=== PATIENT | male | born 1975 | race Caucasian/White ===

== ENCOUNTER 2023-11-01 09:11 | Inpatient (IN) | payer MEDICARE, SELFPAY ==
[2023-11-01] VITALS (38 sets, daily range): BP systolic 94–122; BP diastolic 52–77; PULSE 77–103; RESP 16–18; TEMP 36.7–37.3; O2SAT 79–99; BMI 26.6; BMI 27.4
--- NOTE | 2023-11-01 10:20 | ED.ABDPAIN ---
HPI - Abdominal Pain General Time Seen by Provider: 10:21 Date Seen: 11/01/23 Chief Complaint: Abdominal Pain Stated Complaint: cancer pt- extreme pain Time Seen by Provider: 11/01/23 10:19 Source: patient, family, RN notes reviewed and old records reviewed Mode of arrival: ambulatory Limitations: no limitations History of Present Illness HPI narrative: Demarcus is a very pleasant 48-year-old male 1st visit to [facility] ED for evaluation regarding abdominal pain that started yesterday. Patient notes that he is currently experiencing stage IV esophageal cancer. He has a G-tube placed. He states he is trying to find a primary and from what I can gather most of his care has been done with the [facility] system. He does have oxycodone for pain and received that from [facility]. States he did not want to deal with the waiting at [facility]. Notes the pain is in the epigastrium. He has been passing gas and does not feel like he is bloated. He states that in the past he has had multiple ulcerations and has had a stent placed. Rather challenging history with patient and thus I spoke to his . She is almost in tears stating that she wants her to go on hospice. She notes that Demarcus thinks that his tumor is dying and shrinking and that is why he is seeing blood in the G-tube. She notes that he is very crabby and has been very hard on her and she wants him on hospice. She notes that he was offered chemotherapy as palliative care but declined is trying to do more healthy foods. He wanted a CT today to prove that the tumor is shrinking. She knows that it is not shrinking and he will not accept this. He has been feeling incredibly weak and they are unsure if it is the oxycodone or if it is low hemoglobin. Previous hemoglobin on 10/17 at [facility] was 8.5. He denies shortness of breath or a cough. When asked about bleeding he states he feels like he is bleeding in his abdomen. I do ask if it he has seen it is G2 and he insists on getting up out of the bed and draining a serous fluid from his G-tube into a cup with no flex in it to prove to me that there is evidence of blood. I told him he did not have to do this and that I would believe him but he insisted on getting up. Related Data Home Medications Medication Instructions Recorded Confirmed fentanyl 50 mcg/hr transdermal 1 patch transdermal Q72H 11/01/23 11/01/23 patch oxycodone 10 mg tablet 10 mg PO Q4H 11/01/23 11/01/23 Allergies Allergy/AdvReac Type Severity Reaction Status Date / Time No Known Drug Allergies Allergy Verified 11/01/23 15:25 Review of Systems Status of ROS Reports: 10 or more systems reviewed and unremarkable except as noted in History and below Const Reports: fatigue; Denies: fever or chills Eyes Denies: change in vision ENMT Reports: difficulty swallowing; Denies: throat pain Cardio Denies: chest pain or shortness of breath with exertion Resp Denies: shortness of breath or cough GI Reports: abdominal pain, nausea and difficulty swallowing; Denies: vomiting or diarrhea Denies: painful urination Musculo Denies: back pain Endo Reports: fatigue PFSH PFSH Social History Smoking Status: Former smoker How often do you have a drink containing alcohol: never AUDIT-C Alcohol total score: 0 Non-prescribed substance use: denies use Exam Narrative: Exam Narrative: Patient is a awake and oriented. Somewhat of a challenging historian. Mildly confused. External ears eyes nose clear. Lips are dry. Heart with a regular rate and rhythm. Lungs are clear bilaterally. Abdomen shows tenderness in the epigastrium. G-tube is present. No erythema in this area. Lower extremities without edema. Moving all extremities. He does get up and stand by the side of the bed but is worrisome for fall. However he does stand independently. Const: Vital Signs, click to edit/add: Vital Signs - 24 hr 11/01/23 09:39 11/01/23 10:58 11/01/23 11:00 Temperature 98.6 F Pulse Rate 91 92 Pulse Rate [Right Pulse Oximeter] 98 Respiratory Rate 18 Blood Pressure Blood Pressure [Ri ght Upper Arm] 94/62 Pulse Oximetry 97 95 94 Oxygen Delivery Me thod Room Air 11/01/23 11:01 11/01/23 11:30 11/01/23 11:31 Temperature Pulse Rate 91 90 93 Pulse Rate [Right Pulse Oximeter] Respiratory Rate Blood Pressure 113/63 108/69 Blood Pressure [Ri ght Upper Arm] Pulse Oximetry 94 96 95 Oxygen Delivery Me thod 11/01/23 11:32 11/01/23 12:00 11/01/23 12:01 Temperature Pulse Rate 90 90 90 Pulse Rate [Right Pulse Oximeter] Respiratory Rate Blood Pressure 99/62 Blood Pressure [Ri ght Upper Arm] Pulse Oximetry 94 96 95 Oxygen Delivery Me thod 11/01/23 12:30 11/01/23 12:31 11/01/23 12:32 Temperature Pulse Rate 89 89 87 Pulse Rate [Right Pulse Oximeter] Respiratory Rate Blood Pressure 105/61 Blood Pressure [Ri ght Upper Arm] Pulse Oximetry 96 97 96 Oxygen Delivery Me thod 11/01/23 13:00 11/01/23 13:01 11/01/23 13:38 Temperature Pulse Rate 85 86 92 Pulse Rate [Right Pulse Oximeter] Respiratory Rate Blood Pressure 97/59 L Blood Pressure [Ri ght Upper Arm] Pulse Oximetry 96 94 99 Oxygen Delivery Me thod 11/01/23 14:00 11/01/23 14:04 11/01/23 14:37 Temperature Pulse Rate 92 92 103 H Pulse Rate [Right Pulse Oximeter] Respiratory Rate Blood Pressure Blood Pressure [Ri ght Upper Arm] Pulse Oximetry 92 91 79 L Oxygen Delivery Me thod 11/01/23 14:38 11/01/23 15:00 11/01/23 15:41 Temperature Pulse Rate 97 96 92 Pulse Rate [Right Pulse Oximeter] Respiratory Rate Blood Pressure 101/66 Blood Pressure [Ri ght Upper Arm] Pulse Oximetry 98 96 95 Oxygen Delivery Me thod 11/01/23 15:42 11/01/23 15:47 11/01/23 15:47 Temperature 99.1 F Pulse Rate 99 99 99 Pulse Rate [Right Pulse Oximeter] Respiratory Rate 18 Blood Pressure 95/52 L 95/52 L 95/52 L Blood Pressure [Ri ght Upper Arm] Pulse Oximetry 97 97 97 Oxygen Delivery Me thod 11/01/23 16:01 11/01/23 16:03 11/01/23 16:04 Temperature 98.4 F Pulse Rate 96 97 Pulse Rate [Right Pulse Oximeter] Respiratory Rate 16 Blood Pressure 114/63 Blood Pressure [Ri ght Upper Arm] Pulse Oximetry 97 98 97 Oxygen Delivery Me thod 11/01/23 16:07 Temperature Pulse Rate 101 H Pulse Rate [Right Pulse Oximeter] Respiratory Rate Blood Pressure 114/63 Blood Pressure [Ri ght Upper Arm] Pulse Oximetry 96 Oxygen Delivery Me thod Documenting provider has reviewed patient's vital signs: yes Course Course ED Course: Patient's tells me that she thinks that at word should be on hospice. They were initially offered chemotherapy but knew that it was only be palliative. They declined and he is trying to use a health foods. He is of the belief that the flecks of blood that he has been seeing in his G2 is actually a breakdown of the tumor and that he is getting better. Demarcus's feels that he is not getting better and that she would like him on hospice as she needs help. States that she is having a hard time caring for him and that he is treating her very poorly. She does have appoint with palliative care this week. At this time we will offer blood transfusion after I speak to oncology. Plan on CT so that we can compare tumor sizes. This will be a challenging conversation is Demarcus is of the mind that he is improving. Reevaluation(s) Reevaluation #1: Patient notes that he has having increasing pain and therefore will give him and another dose of Dilaudid. Blood is transfusing at this time. Consultations Consultation #1: I had the pleasure of speaking to Dr. Roque who is with oncology at the [facility]. At this time notes that chemo would only be palliative. Did attempt sending E CT to the you so that they could do a comparison of tumor size. There is metastases to adrenal gland, liver and there is significant lymphadenopathy in the abdomen. Stent is in place. At this time there is really no further treatment. Add moise and his dad were hopeful that the tumor was actually shrinking as they thought this was the particles that appeared to be bloody in his G-tube which aware not seeing today. Unfortunately I did inform them that the cancer is still present. Dr. Roque recommends outpatient follow-up with Oncology after stabilization for pain control. Vital Signs Vital signs: Initial Vital Signs Temperature 98.6 F 11/01/23 09:39 Temperature Source Temporal Artery Scan 11/01/23 09:39 Pulse Rate 98 11/01/23 09:39 Respiratory Rate 18 11/01/23 09:39 Blood Pressure 94/62 11/01/23 09:39 Blood Pressure Mean 72 11/01/23 09:39 Blood Pressure Position Sitting 11/01/23 09:39 Pulse Oximetry 97 11/01/23 09:39 Oxygen Delivery Method Room Air 11/01/23 09:39 Vital Signs Temperature 98.6 F 11/01/23 09:39 Pulse Rate 98 11/01/23 09:39 Respiratory Rate 18 11/01/23 09:39 Blood Pressure 94/62 11/01/23 09:39 Pulse Oximetry 97 11/01/23 09:39 Oxygen Delivery Method Room Air 11/01/23 09:39 Temperature 98.4 F 11/01/23 16:03 Pulse Rate 101 H 11/01/23 16:07 Respiratory Rate 16 11/01/23 16:03 Blood Pressure 114/63 11/01/23 16:07 Pulse Oximetry 96 11/01/23 16:07 Oxygen Delivery Method Room Air 11/01/23 09:39 Medications Administered Medications: Discontinued Medications Generic Name Dose Route Start Last Admin Trade Name Freq PRN Reason Stop Dose Admin Hydromorphone HCl 0.5 mg 11/01/23 10:21 11/01/23 10:48 Hydromorphone 0.5 Mg/0.5 Ml Inj IVP 11/01/23 10:22 0.5 mg ONCE ONE Administration Sodium Chloride 1,000 mls @ 1,000 mls/hr 11/01/23 10:22 11/01/23 12:00 0.9 % Sodium Chloride 1000 Ml IV 11/01/23 11:21 Infused .Q1H SHANNON Infusion Lorazepam 0.5 mg 11/01/23 12:17 11/01/23 12:37 Lorazepam 2 Mg/Ml Inj IVP 11/01/23 12:18 0.5 mg ONCE ONE Administration Ondansetron HCl 4 mg 11/01/23 10:21 11/01/23 10:48 Ondansetron 2 Mg/Ml Inj IVP 11/01/23 10:22 4 mg ONCE ONE Administration MDM - Abdominal Pain MDM Narrative Medical decision making narrative: 1. Abdominal pain-Edward noted to have significant abdominal discomfort. He has history of esophageal carcinoma stage IV with metastases to liver. Stent placed in esophagus 3 weeks ago at [facility]. That is still in place. No evidence of bowel obstruction. No fever. Patient has been trying to pursue alternative treatment such as diet supplements according to his . Patient had been on fentanyl patch and oxycodone. Oxycodone 10 mg Q 4-6 hours was prescribed but Demarcus's thinks he is actually taking more than that. Here in the emergency room you room we use Dilaudid for pain control. Will admit patient for pain control at this time. Hopefully we will be able to find a long-acting narcotic and a shorter acting narcotic for breakthrough pain that he can be more comfortable at home on. 2. Anemia-hemoglobin 7.4. No evidence of blood in G-tube. He previous hemoglobin 8.5. Patient had been complaining of weakness which is likely a combination of low hemoglobin and his cancer. Decreased p.o. intake although he is still able to drink water. He is receive 1 unit of blood while in the ED. 3. Disposition-admission to [facility] under the care of Dr. Greene at this time. Plan on social media assistant consult for discussion regarding hospice versus palliative care. Demarcus's said she does have an appointment this week for palliative care assistance. She notes that she is unable to take care of Demarcus at home stating that he is ?very mean when he is on narcotics and ?. Medical Records Attestation: I reviewed the patient's medical records. Lab Data Attestation: I reviewed the patient's lab results. Labs: Lab Results 11/01/23 11/01/23 11/01/23 Range/Units 10:32 11:40 11:46 WBC 26.27 H* (4.50-11.00) K/uL RBC 2.64 L (4.30-5.90) m/uL Hgb 7.4 L* (13.5-17.5) gm/dL Hct 23.5 L (37.0-53.0) % MCV 89 (80-100) fL MCH 28 (26-34) pg MCHC 32 (32-36) gm/dL RDW Coeff of Serafin 17.6 H (11.5-15.5) % Plt Count 629 H (140-440) K/uL Neut % (Auto) 84.9 H (42.0-72.0) % Lymph % (Auto) 7.1 L (20-44) % [place] % (Auto) 7.0 (0.0-11.0) % Eos % (Auto) 0.3 (0.0-7.0) % Baso % (Auto) 0.2 (0.0-3.0) % Neut # (Auto) 22.30 H (1.7-7.0) K/uL Lymph # (Auto) 1.90 (0.90-2.90) K/uL [place] # (Auto) 1.80 H (0.00-0.90) K/UL Eos # (Auto) 0.10 (0.00-0.50) K/uL Baso # (Auto) 0.10 (0.00-0.30) K/uL Abs Immat Gran (auto) 0.10 (0.00-0.30) K/uL Imm/Tot Granulo (auto) 0.5 % Diff Slide Review Acceptable Review (Acceptable) Sodium 133 L (135-149) mmol/L Potassium 3.1 L (3.6-5.1) mmol/L Chloride 96 (96-114) mmol/L Carbon Dioxide 30 (20-32) mmol/L Anion Gap 7 (7-15) mEq/L BUN 14 (5-24) mg/dL Creatinine 0.6 (0.5-1.5) mg/dL Estimated Creat Clear 153.84 Estimated GFR 121 ml/min Glucose 156 H (60-115) mg/dL Lactate 1.4 (0.5-1.9) mmol/L Calcium 8.6 (8.4-10.6) mg/dL Total Bilirubin 0.5 (0.1-1.5) mg/dL AST 32 (12-35) U/L ALT 21 (4-50) U/L Alkaline Phosphatase 113 (40-150) U/L C-Reactive Protein 14.9 H (0.5-1.0) mg/dL Total Protein 7.0 (6.0-8.3) g/dL Albumin 3.0 L (3.3-5.0) g/dL Lipase 69 (23-300) U/L Urine Color Ware A (Yellow) Urine Appearance Clear (Clear) Urine pH 5.5 (5.0-8.5) Ur Specific [place] >= 1.030 (1.000-1.030) Urine Protein 2+ A (Negative) Urine Glucose (UA) Negative (Negative) Urine Ketones Negative (Negative) Urine Blood Negative (Negative) Urine Nitrite Negative (Negative) Urine Bilirubin Negative (Negative) Urine Urobilinogen 1.0 (0.2-1.0) Ur Leukocyte Esterase Negative (Negative) Urine RBC 0-2 (0-2) Urine WBC 0-2 (0-5) Ur Squamous Epith Cells None (None-Few) Urine Bacteria Moderate A (None) Urine Mucus Moderate A (None) Blood Type O Positive Antibody Screen NEGATIVE Crossmatch (AHG) See Detail Imaging Data CT scan - abdomen: Attestation: I have reviewed the pertinent imaging results. Radiologist's impression: LUNG BASES: Minimal atelectasis at the lung bases.The heart size is normal at the lung bases. LIVER/BILIARY SYSTEM:Hepatic masses consistent with metastatic disease. There is a left lobe lesion measuring 4.6 centimeters on axial image 37. There is a right lobe lesion measuring 5.6 centimeters on axial image 38. There is a smaller left lobe lesion measuring 1.6 centimeters on image 22. There is a right lobe lesion measuring 1.8 centimeters on image 39.the gall bladder appears normal. ADRENALS: Right adrenal gland is normal. There is a 3.4 centimeter left adrenal lesion which may be a metastatic deposit KIDNEYS, URETERS and BLADDER:Low-density renal lesions likely cysts. The bladder appears normal. SPLEEN:Normal appearance. PANCREAS: Appears normal. RETROPERITONEUM and MESENTERY: Lymphadenopathy is noted. This is right retrocrural, gastrohepatic, portacaval, gideon hepatis and upper abdominal retroperitoneum. Confluent lymphadenopathy is noted posterior to the aorta at the level of the renal arteries measuring 5.4 x 2.9 centimeters trans axially. There are other smaller nodes identified in the retroperitoneum. GASTROINTESTINAL SYSTEM: Esophageal stent traversing a bulky esophageal and proximal stomach lesion. A GJ tube appears to be normally located. There is sigmoid diverticulosis. PELVIS: No mass, adenopathy or free fluid. OSSEOUS STRUCTURES and ABDOMINAL WALL: No destructive process of bone. No significant abdominal wall defect. OTHER: No free fluid or free air. IMPRESSION: 1. Multiple hepatic masses consistent with metastatic disease to the liver. 2. There is a 3.4 centimeter left adrenal mass which is probably a metastatic deposit. 3. Significant lymphadenopathy as described likely metastatic. 4. An esophageal stent traverses a bulky distal esophageal and proximal stomach malignancy. 5. A GJ tube appears to be properly located Discharge Plan Discharge Prescriptions: No Action oxycodone 10 mg tablet 10 mg PO Q4H fentanyl 50 mcg/hr patch 72 hour 1 patch transdermal Q72H Follow Up/Referrals: Abdifatah Khoury MD [Primary Care Provider] -
[2023-11-01 10:38] LABS: Lactate Sepsis w/Reflex* 1.4 mmol/L (0.5-1.9)
[2023-11-01 10:40] LABS: Basophils Percent Auto 0.2 % (0.0-3.0); Eosinophils Percent Auto 0.3 % (0.0-7.0); Hematocrit 23.5 % (37.0-53.0); Immature Granulocytes Pct Auto 0.5 %; Lymphocytes Percent Auto 7.1 % (20-44); Mean Corpuscular HGB Conc 32 gm/dL (32-36); Mean Corpuscular Hemoglobin 28 pg (26-34); Mean Corpuscular Volume 89 fL (80-100); Neutrophils Percent Auto 84.9 % (42.0-72.0); Platelet Count* 629 K/uL (140-440); RDW Coefficient of Variation % 17.6 % (11.5-15.5); Red Blood Count 2.64 m/uL (4.30-5.90)
[2023-11-01 10:43] LABS: Hemoglobin* 7.4 gm/dL (13.5-17.5); Slide Review Reflex Yes; White Blood Count* 26.27 K/uL (4.50-11.00)
[2023-11-01 10:44] LABS: Slide Review Acceptable Review (Acceptable)
[2023-11-01] MEDS: 0.9 % SODIUM CHLORIDE 1000 ml 1,000 ML IV (10:48)
[2023-11-01] MEDS: HYDROmorphone 0.5 mg/0.5 ml inj IVP ×3 (10:48→22:54)
[2023-11-01] MEDS: ONDANSETRON 2 MG/ML inj 4 MG IVP (10:48)
[2023-11-01 11:32] LABS: Chloride* 96 mmol/L (96-114); Sodium* 133 mmol/L (135-149)
[2023-11-01 11:33] LABS: Potassium* 3.1 mmol/L (3.6-5.1)
[2023-11-01 11:34] LABS: Creatinine* 0.6 mg/dL (0.5-1.5); Est. Creatinine Clearance* 153.84; Estimated Glomerular Filt Rate 121 ml/min
[2023-11-01 11:35] LABS: Alkaline Phosphatase* 113 U/L (40-150); Anion Gap 7 mEq/L (7-15); Aspartate Amino Transferase* 32 U/L (12-35); Bilirubin Total* 0.5 mg/dL (0.1-1.5); Blood Urea Nitrogen* 14 mg/dL (5-24); Carbon Dioxide* 30 mmol/L (20-32); Lipase* 69 U/L (23-300)
[2023-11-01 11:36] LABS: Alanine Aminotransferase* 21 U/L (4-50); Calcium* 8.6 mg/dL (8.4-10.6); Glucose* 156 mg/dL (60-115)
[2023-11-01 11:53] LABS: C Reactive Protein* 14.9 mg/dL (0.5-1.0)
[2023-11-01 12:18] LABS: Appearance Urine Clear (Clear); Bilirubin Urine Negative (Negative); Blood Urine Negative (Negative); Color Urine Orange (Yellow); Glucose Urine Negative (Negative); Ketones Urine Negative (Negative); Leukocyte Esterase Urine Negative (Negative); Nitrite Urine Negative (Negative); Protein Urine 2+ (Negative); Specific Gravity Urine >= 1.030 (1.000-1.030); pH Urine 5.5 (5.0-8.5)
[2023-11-01 12:23] LABS: Bacteria Urine Moderate; Mucus Urine Moderate; RBC Urine 0-2 (0-2); WBC Urine 0-2 (0-5)
[2023-11-01] MEDS: LORazepam 2 MG/ML inj 0.5 MG IVP (12:37)
--- NOTE | 2023-11-01 13:06 | CT_ITS ---
Patient: ROBERT STEVENSON Facility:?[facility] Patient ID:?[id number] Site Patient ID:?[id number]. Site :?[id number] Study:?CT-Abdomen/Pelvis 89CC ISOVUE 370-11/01/2023 1:49:38 PM Ordering Physician:?DR. OWENS Final Report: INDICATION: Abdominal pain. Esophageal cancer. COMPARISON: None currently available for comparison TECHNIQUE: CT examination of the abdomen and pelvis was performed following the uneventful intravenous administration of 89 cc of Isovue 370. Thin section axial images were obtained from the lung bases through the pubic symphysis. Oral contrast was not administered. Please note that all CT scans at this facility use dose modulation, iterative reconstruction, and/or weight-based dosing when appropriate to reduce radiation dose to as low as reasonably achievable. FINDINGS: LUNG BASES: Minimal atelectasis at the lung bases.The heart size is normal at the lung bases. LIVER/BILIARY SYSTEM:Hepatic masses consistent with metastatic disease. There is a left lobe lesion measuring 4.6 centimeters on axial image 37. There is a right lobe lesion measuring 5.6 centimeters on axial image 38. There is a smaller left lobe lesion measuring 1.6 centimeters on image 22. There is a right lobe lesion measuring 1.8 centimeters on image 39.the gall bladder appears normal. ADRENALS: Right adrenal gland is normal. There is a 3.4 centimeter left adrenal lesion which may be a metastatic deposit KIDNEYS, URETERS and BLADDER:Low-density renal lesions likely cysts. The bladder appears normal. SPLEEN:Normal appearance. PANCREAS: Appears normal. RETROPERITONEUM and MESENTERY: Lymphadenopathy is noted. This is right retrocrural, gastrohepatic, portacaval, gideon hepatis and upper abdominal retroperitoneum. Confluent lymphadenopathy is noted posterior to the aorta at the level of the renal arteries measuring 5.4 x 2.9 centimeters trans axially. There are other smaller nodes identified in the retroperitoneum. GASTROINTESTINAL SYSTEM: Esophageal stent traversing a bulky esophageal and proximal stomach lesion. A GJ tube appears to be normally located. There is sigmoid diverticulosis. PELVIS: No mass, adenopathy or free fluid. OSSEOUS STRUCTURES and ABDOMINAL WALL: No destructive process of bone. No significant abdominal wall defect. OTHER: No free fluid or free air. IMPRESSION: 1. Multiple hepatic masses consistent with metastatic disease to the liver. 2. There is a 3.4 centimeter left adrenal mass which is probably a metastatic deposit. 3. Significant lymphadenopathy as described likely metastatic. 4. An esophageal stent traverses a bulky distal esophageal and proximal stomach malignancy. 5. A GJ tube appears to be properly located Please note that all CT scans at this facility use dose modulation, iterative reconstruction, and/or weight-based dosing when appropriate to reduce radiation dose to as low as reasonably achievable. Dictated by Cordell Wynne MD @ 11/01/2023 2:00:41 PM Signed by:?Cordell Wynne MD @11/01/2023 2:00:41 PM (Electronic Signature)
[2023-11-01] MEDS: 0.9 % SODIUM CHLORIDE 250 ml IV (15:40)
--- NOTE | 2023-11-01 18:46 | PC.NURSE ---
The fentanyl patch the patients applied at home this AM was disposed of properly and witnessed by another RN. New fentanyl patches to be applied at 1999.
--- NOTE | 2023-11-01 19:07 | PC.NURSE ---
VSS after blood transfusion. Fentanyl patch from home was wasted with Radha MONROY. Bed alarm on. In and out of sleep in bed. PEG tube in place.
[2023-11-01] MEDS: PANTOPRAZOLE SODIUM 40 MG INJ IVP (19:46)
--- NOTE | 2023-11-01 19:52 | PC.NURSE ---
Pt's 50 mcg Fentanyl patch from prior to admission wasted with PORFIRIO Sanchez in med destroyer bottle in med room.
[2023-11-01] MEDS: fentaNYL 25 MCG/HR PATCH 1 PATCH TRANSDERMA (20:05)
[2023-11-01] MEDS: fentaNYL 50 MCG/HR PATCH 1 PATCH TRANSDERMA (20:05)
--- NOTE | 2023-11-01 21:22 | PM.IMHP1 ---
Hospitalist- H&P: JAMAL History of Present Illness Date Seen: 11/01/23 Chief complaint: cancer pt- extreme pain Narrative: Demarcus Walker is a 48 year old man who presents to the [facility] Emergency Department this morning with complaint of uncontrolled epigastric pain. He has never been seen in the [facility] previously. Most of his care is obtained through the [facility]. He informs us that he has stage IV esophageal cancer, 1st diagnosed July 2023. Recently had a stent placed due to dysphagia. Has a J-tube in place for venting as well as for enteral feeding. In reviewing outside medical records patient presented with a 1 year history of progressively worsening reflux symptoms and severe postprandial pain. urged him to be assessed but he refused until July 2023. 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 Consulted with Oncology who recommended palliative systemic therapy. Patient declined this and opted to pursue ?alternate therapy? instead. He does not disclose what that alternate therapy is. Underwent repeat EGD with esophageal stent placement on 09/27/2023. Nausea and vomiting continued. GJ tube placed by surgery on 10/06/2023. During this particular hospitalization patient was started on a fentanyl transdermal patch and p.r.n. oral oxycodone 10-15 mg every 4 hours as needed. Patient's pain was adequately manage with pain levels of 3/10 until the past several days. Epigastric pain not being relieved as it was previously. No longer eating. Receives enteral feedings. He decided to stop the enteral feedings today. Patient opted to present to [facility] Emergency Department rather than [facility] system because he did not Wanna wait several hours before he could be seen. He also verbalizes that he wishes to pursue comfort focus measures only. He does not wish to obtain any additional disease directed diagnostic or interventional efforts. He wishes to pursue hospice support in the home without all possible. I speak separately, in person, with his , Diana. Her cell phone number [phone]. She indicates that she has been his primary caregiver since this all started. She notes how it is becoming increasingly difficult for her to meet his needs. He is often angry and not satisfied with her efforts to help him. She indicates how he seems to be more angry and less satisfied the more his pain is not controlled. She states she can no longer care for him alone in their home while his pain is not adequately managed. She supports the patient coming into the hospital to seek better control of his pain. Even before he was diagnosed with the esophageal cancer, he has always make his decisions irrespective of what others would recommend that he could do or consider, including how he did not seek medical help for his progressively worsening reflux symptoms until he had been suffering for an entire year with his symptoms. Review of Systems Status of ROS: Reports: 6 or more systems reviewed and unremarkable except as noted in History and below Narrative: He requests DNR DNI resuscitation status in the event of cardiopulmonary demise. He designates his , Diana off floor, cell phone [phone], as his power of fish straightener for health should that be required. [facility] Medical History Malnutrition ?E46 - Unspecified protein-calorie malnutrition (ICD-10) Cancer associated pain ?G89.3 - Neoplasm related pain (acute) (chronic) (ICD-10) Adenocarcinoma of esophagus, stage 4 ?C15.9 - Malignant neoplasm of esophagus, unspecified (ICD-10) Yusuf's esophagus determined by endoscopy ?K22.70 - Yusuf's esophagus without dysplasia (ICD-10) Social History What is your current living situation?: I presently have a place to live Problems where you live: no known problems Problems where you live details: No known problems In the past 12 months, utilities in danger of being shut off: no In past 12 months, lack of transportation kept you from medical appts, meetings, work, or getting things needed for daily living: no In the past 12 mos, have been you worried that your food would run out before you had money to buy more?: never true In the past 12 mos, the food you bought just didn't last and you didn't have money to buy more?: never true Highest level of school completed/degree received: some college, no degree Smoking Status: Former smoker Do you use any of these nicotine containing products: None How often do you have a drink containing alcohol: never AUDIT-C Alcohol total score: 0 Non-prescribed substance use: former substance user and marijuana (any form) Non-prescribed substance use details: former marijuana use, quit after diagnosed in Jul 2023 Caffeine: No How often does anyone, including family, friends and others, physically hurt you: never How often does anyone, including family, friends and others, insult or talk down to you: never How often does anyone, including family, friends and others, threaten you with harm: never How often does anyone, including family, friends and others, scream or curse at you: never service: No Meds Home Medications and Allergies Home Medications Medication Instructions Recorded Confirmed Type fentanyl 50 mcg/hr transdermal 1 patch transdermal Q72H 11/01/23 11/01/23 History patch oxycodone 10 mg tablet 10 - 15 mg PO Q4H PRN 11/01/23 11/01/23 History Allergies Allergy/AdvReac Type Severity Reaction Status Date / Time No Known Drug Allergies Allergy Verified 11/01/23 15:25 Exam Narrative: Exam Narrative: Examined patient in the emergency department. Patient is sound asleep when I examine him. He had received hydromorphone and lorazepam prior to my seeing him, obtaining some relief. He awakens easily by my touching his hand and calling his name, ?Sid. ? Vision and hearing are adequate. Alert and oriented to self, place, time, situation. Articulate. No icterus or jaundice. Midline nasal septum. Normal nasal mucosa. Dentition in fair repair. Dry buccal mucosa. Lungs clear to auscultation. Heart tones with regular rhythm. Abdomen with active bowel sounds, soft. Tender in epigastrium. G-tube in place without evidence of inflammation or infection. Extremities without edema. No focal motor neurologic deficits. Const: Vital Signs, click to edit/add: Vital Signs - 24 hr 11/01/23 09:39 11/01/23 10:58 11/01/23 11:00 Temperature 98.6 F Pulse Rate 91 92 Pulse Rate [Pulse Oximeter] Pulse Rate [Right Pulse Oximeter] 98 Respiratory Rate 18 Blood Pressure Blood Pressure [Ri ght Arm] Blood Pressure [Ri ght Upper Arm] 94/62 Pulse Oximetry 97 95 94 Oxygen Delivery Me thod Room Air 11/01/23 11:01 11/01/23 11:30 11/01/23 11:31 Temperature Pulse Rate 91 90 93 Pulse Rate [Pulse Oximeter] Pulse Rate [Right Pulse Oximeter] Respiratory Rate Blood Pressure 113/63 108/69 Blood Pressure [Ri ght Arm] Blood Pressure [Ri ght Upper Arm] Pulse Oximetry 94 96 95 Oxygen Delivery Ia thod 11/01/23 11:32 11/01/23 12:00 11/01/23 12:01 Temperature Pulse Rate 90 90 90 Pulse Rate [Pulse Oximeter] Pulse Rate [Right Pulse Oximeter] Respiratory Rate Blood Pressure 99/62 Blood Pressure [Ri ght Arm] Blood Pressure [Ri ght Upper Arm] Pulse Oximetry 94 96 95 [facility] 12:30 11/01/23 12:31 11/01/23 12:32 Temperature Pulse Rate 89 89 87 Pulse Rate [Pulse Oximeter] Pulse Rate [Right Pulse Oximeter] Respiratory Rate Blood Pressure 105/61 Blood Pressure [Ri ght Arm] Blood Pressure [Ri ght Upper Arm] Pulse Oximetry 96 97 96 [facility] 11/01/23 13:00 11/01/23 13:01 11/01/23 13:38 Temperature Pulse Rate 85 86 92 Pulse Rate [Pulse Oximeter] Pulse Rate [Right Pulse Oximeter] Respiratory Rate Blood Pressure 97/59 L Blood Pressure [Ri ght Arm] Blood Pressure [Ri ght Upper Arm] Pulse Oximetry 96 94 99 [facility] 11/01/23 14:00 11/01/23 14:04 11/01/23 14:37 Temperature Pulse Rate 92 92 103 H Pulse Rate [Pulse Oximeter] Pulse Rate [Right Pulse Oximeter] Respiratory Rate Blood Pressure Blood Pressure [Ri ght Arm] Blood Pressure [Ri ght Upper Arm] Pulse Oximetry 92 91 79 L Oxygen Delivery Ia thod 11/01/23 14:38 11/01/23 15:00 11/01/23 15:41 Temperature Pulse Rate 97 96 92 Pulse Rate [Pulse Oximeter] Pulse Rate [Right Pulse Oximeter] Respiratory Rate Blood Pressure 101/66 Blood Pressure [Ri ght Arm] Blood Pressure [Ri ght Upper Arm] Pulse Oximetry 98 96 95 Oxygen Delivery Ia thod 11/01/23 15:42 11/01/23 15:47 11/01/23 15:47 Temperature 99.1 F Pulse Rate 99 99 99 Pulse Rate [Pulse Oximeter] Pulse Rate [Right Pulse Oximeter] Respiratory Rate 18 Blood Pressure 95/52 L 95/52 L 95/52 L Blood Pressure [Ri ght Arm] Blood Pressure [Ri ght Upper Arm] Pulse Oximetry 97 97 97 [facility] 11/01/23 16:01 11/01/23 16:03 11/01/23 16:04 Temperature 98.4 F Pulse Rate 96 97 Pulse Rate [Pulse Oximeter] Pulse Rate [Right Pulse Oximeter] Respiratory Rate 16 Blood Pressure 114/63 Blood Pressure [Ri ght Arm] Blood Pressure [Ri ght Upper Arm] Pulse Oximetry 97 98 97 Oxygen Delivery [facility] 11/01/23 16:07 11/01/23 16:08 11/01/23 16:11 Temperature 98.7 F Pulse Rate 101 H 96 91 Pulse Rate [Pulse Oximeter] Pulse Rate [Right Pulse Oximeter] Respiratory Rate 16 Blood Pressure 114/63 122/73 Blood Pressure [Ri ght Arm] Blood Pressure [Ri ght Upper Arm] Pulse Oximetry 96 97 Oxygen Delivery [facility] 11/01/23 16:30 11/01/23 16:34 11/01/23 16:56 Temperature 98.0 F Pulse Rate 89 89 90 Pulse Rate [Pulse Oximeter] Pulse Rate [Right Pulse Oximeter] Respiratory Rate 16 Blood Pressure 111/77 Blood Pressure [Ri ght Arm] Blood Pressure [Ri ght Upper Arm] Pulse Oximetry 95 93 97 Oxygen Delivery [facility] 11/01/23 16:57 11/01/23 17:00 11/01/23 18:19 Temperature 98.2 F Pulse Rate 91 95 Pulse Rate [Pulse Oximeter] 91 Pulse Rate [Right Pulse Oximeter] Respiratory Rate 18 Blood Pressure 122/73 Blood Pressure [Ri ght Arm] 121/72 Blood Pressure [Ri ght Upper Arm] Pulse Oximetry 98 94 98 Oxygen Delivery [facility] Room Air 11/01/23 18:19 11/01/23 19:20 Temperature 98.3 F Pulse Rate 77 Pulse Rate [Pulse Oximeter] Pulse Rate [Right Pulse Oximeter] Respiratory Rate 16 16 Blood Pressure 97/61 Blood Pressure [Ri ght Arm] Blood Pressure [Ri ght Upper Arm] Pulse Oximetry 94 95 Oxygen Delivery [facility] Room [place] [facility] Hospitalist - H&P: Result Labs Labs: Short CBC 11/01/23 Range/Units 10:32 WBC 26.27 H* (4.50-11.00) K/uL Hgb 7.4 L* (13.5-17.5) gm/dL Hct 23.5 L (37.0-53.0) % Plt Count 629 H (140-440) K/uL BMP 11/01/23 10:32 Sodium 133 L Potassium 3.1 L Chloride 96 Carbon Dioxide 30 BUN 14 Creatinine 0.6 Glucose 156 H Calcium 8.6 Liver Function 11/01/23 Range/Units 10:32 Total Bilirubin 0.5 (0.1-1.5) mg/dL AST 32 (12-35) U/L ALT 21 (4-50) U/L Alkaline Phosphatase 113 (40-150) U/L Albumin 3.0 L (3.3-5.0) g/dL Urine 11/01/23 Range/Units 11:40 Urine Color [place] A (Yellow) Urine Appearance Clear (Clear) Urine pH 5.5 (5.0-8.5) Ur Specific [place] >= 1.030 (1.000-1.030) Urine Protein 2+ A (Negative) Urine Glucose (UA) Negative (Negative) Imaging CT scan - abdomen and pelvis: Radiologist's impression: IMPRESSION: 1. No evidence of pulmonary embolism. 2. Subsegmental anterior basal segment left lower lobe atelectasis. No acute cardiopulmonary process is otherwise identified. 3. Diffuse bilateral calcified pleural plaques consistent with asbestos exposure. 4. Severe multivessel atherosclerotic coronary artery calcification. 5. Asymmetrically enlarged multinodular right thyroid lobe for which thyroid ultrasound is recommended for further characterization if the patient is a candidate for ongoing imaging surveillance or intervention based on age, comorbidities and patient preferences. That exam can be performed on a nonemergent basis. Assessment and Plan Assessment and plan (1) Cancer associated pain: Problem comment: - 11/01/2023: Fentanyl 50 mcg per 72-hour transdermal patch, oxycodone 10-15 mg q.4 hours p.r.n. for pain, not achieving pain relief. - patient and request if possible that we help achieve better pain control and he currently has. His goal is to return home with hospice support if at all possible. Status: Acute (2) Adenocarcinoma of esophagus, stage 4: Problem comment: - Diagnosed 08/13/2023. - Poorly differentiated adenocarcinoma in the distal esophagus, with extensive paraesophageal and abdominal adenopathy extending to well below the renal vasculature, 2 metastases to liver, possible bony metastases to pubic ramus. - patient declined palliative systemic therapy, opted instead to pursue ?alternate therapy. - esophageal stent placed 09/27/2023. - GJ tube placed 10/06/2023. - 11/01/2023: Patient requests comfort focus measures only with DNR DNI resuscitation status. He and declined any additional disease directed diagnostic or interventional efforts. Patient requests referral for hospice services if at all possible. Status: Acute (3) Malnutrition: Problem comment: - status post esophageal stenting NG J-tube placement. - had been receiving enteral feeding via J-tube until he decided to discontinue this on 11/01/2023. - 11/01/2023: Patient decides to stop all enteral feeding support hereafter. Requests comfort focus measures only. Status: Acute Plan 1. Reviewed with patient and . 2. Answered their questions. 3. The agreeable to above stated plans and recommendations. 4. Admit to observation in effort to achieve better pain control and establish safe discharge disposition plan. 5. [employer] consultation to assist with discharge disposition planning. Total Time Spent Total Time Spent: 70 minutes
[2023-11-01] MEDS: SODIUM CHLORIDE 0.9 % (FLUSH) 10 ML SYRINGE 5 ML IVF (21:40)
[2023-11-01] MEDS: GI COCKTAIL (VISC LIDO/ANTACID) 30 ML 10 ML PO ×2 (22:10→22:11)
[2023-11-02] MEDS: OXYCODONE 5 MG TABLET 10 MG PO (00:43)
[2023-11-02] MEDS: HYDROmorphone 0.5 mg/0.5 ml inj IVP (01:10)
[2023-11-02] MEDS: SODIUM CHLORIDE 0.9 % (FLUSH) 10 ML SYRINGE 5 ML IVF ×3 (01:14→20:42)
[2023-11-02] MEDS: HYDROmorphone 0.5 mg/0.5 ml inj 1 MG IVP ×5 (03:02→18:32)
--- NOTE | 2023-11-02 06:54 | PC.NURSE ---
End of shift note [id number]: Pt noted to be alert & oriented to self and birthday at times though did state wrong year when asked birthday the first time at HS. Pt confused to time and place. reported she has noticed confusion with patient at home prior to hospitalization as well. He has been restless overnight, calling his stating, ?You?re trying to pull one over on me? and was noted to be swearing at on phone. Pt hesitant to take po meds due to esophageal cancer and stent currently in place. PRN Dilaudid and Oxycodone utilized. New orders obtained for increased dose of PRN Dilaudid as well as order for Lorazepam IVP instead of po. IV to L AC patent and SL. Pt transferring with SBA though refusing to have gait belt used when encouraged/educated. Pt currently on comfort cares. He refused oral cares when offered. Pt was only willing to take 6 mL of GI cocktail last evening. PEG tube in place to abdomen. Pt NPO at this time. Pt slept well after given increased dose of PRN Dilaudid. He was continent of bowel and bladder throughout the shift. Bed alarm utilized due to pt being a fall risk.
[2023-11-02 09:00] VITALS: O2SAT 96
[2023-11-02] MEDS: diphenhydrAMINE 50 MG/ML inj 25 MG IVP ×2 (09:30→22:49)
[2023-11-02] MEDS: HALOPERIDOL 5 MG/ML INJ IV ×2 (09:31→22:52)
[2023-11-02 09:38] VITALS: BP 116/67; PULSE 99; RESP 16; TEMP 37.1; O2SAT 95
[2023-11-02] MEDS: LORazepam 2 MG/ML inj 1 MG IVP ×3 (11:12→20:41)
--- NOTE | 2023-11-02 11:15 | PC.NURSE ---
Patient ambulated to bathroom independently. Stated I need to take a duce. Patient stated it was successful but appeals writer did not witness bowel movement. Patient was grabbing upper abdomen and wincing in pain. Dilaudid given IV. Patient also stated he felt anxious. IV lorazepam given.
[2023-11-02] MEDS: MORPHINE 10 MG/0.5 ML ORAL SOLN 5 MG PO (14:02)
--- NOTE | 2023-11-02 14:30 | PC.NURSE ---
Patient here for end of life care. Pain controlled with PO and IV meds. Anxiety controlled with IV medications. Patient has been up in the room with stand by assist. Does not follow instructions adequately but is redirectable. PIV is patent and intact. Vital signs checked this morning and within normal limits. Per MD, okay to have anything by mouth if patient prefers, okay to use GJ tube. Unfortunately,the syringes we have are not compatible to his GJ tube but patients will go home and get the correct syringes so we can use the GJ tube as needed. Patient became more restless this afternoon going in and out of the bathroom. No void or BM. Did bladder scan for 3ml. Family has been at the bedside most of the day and appear supportive. Skin assessment completed and no areas of concern. Complete bed bath and hair wash and oral care completed as well. Patient ambulates with stand by assist but is unsteady. Will continue to assess for disposition but per , she is unable to care for him at home at this time.
--- NOTE | 2023-11-02 14:33 | PM.IMPN1 ---
Progress Note: A&P Assessment and plan (1) Cancer associated pain: Problem details: - 11/01/2023: Fentanyl 50 mcg per 72-hour transdermal patch, oxycodone 10-15 mg q.4 hours p.r.n. for pain, not achieving pain relief. - patient and request if possible that we help achieve better pain control - fentanyl patch increased to 75mcg on 10/31, liquid morphine added 11/02/23 Status: Acute (2) Adenocarcinoma of esophagus, stage 4: Problem details: - Diagnosed 08/13/2023. - Poorly differentiated adenocarcinoma in the distal esophagus, with extensive paraesophageal and abdominal adenopathy extending to well below the renal vasculature, 2 metastases to liver, possible bony metastases to pubic ramus. - patient declined palliative systemic therapy, opted instead to pursue ?alternate therapy. - esophageal stent placed 09/27/2023. - GJ tube placed 10/06/2023. - 11/01/2023: Patient requests comfort focus measures only with DNR DNI resuscitation status. He and declined any additional disease directed diagnostic or interventional efforts. Patient requests referral for hospice services if at all possible. Status: Acute (3) Malnutrition: Problem details: - status post esophageal stenting NG J-tube placement. - had been receiving enteral feeding via J-tube until he decided to discontinue this on 11/01/2023. - 11/01/2023: Patient decides to stop all enteral feeding support hereafter. Requests comfort focus measures only. Status: Acute (4) Agitation: Problem details: - likely progression of disease (possible brain mets) - prn Haldol and Benadryl if patient unsafe, continue redirection Status: Acute Plan - comfort focused measures - when agitation/pain better managed, assess for hospice placement at a facility - , children, father updated at bedside, questions answered Subjective Date Seen: 11/02/23 Interval history: Ed was admitted to the hospital last night for progressive disease; known metastatic esophageal cancer. He has not had adequate pain control, and has noted intermittent agitation. Family has noted a significant change in personality over the past 5-7 days (more paranoid, perseverative). Upon admission, patient and family requested comfort-focused measures for care. Exam Narrative: Exam Narrative: When awake, patient is agitated with some paranoid behaviors Breathing comfortably He is ambulating with assistance Const: Vital Signs, click to edit/add: Vital Signs - 24 hr 11/01/23 14:37 11/01/23 14:38 11/01/23 15:00 Temperature Pulse Rate 103 H 97 96 Pulse Rate [Pulse Oximeter] Respiratory Rate Blood Pressure 101/66 Blood Pressure [Ri ght Arm] Pulse Oximetry 79 L 98 96 Oxygen Delivery Me thod 11/01/23 15:41 11/01/23 15:42 11/01/23 15:47 Temperature 99.1 F Pulse Rate 92 99 99 Pulse Rate [Pulse Oximeter] Respiratory Rate 18 Blood Pressure 95/52 L 95/52 L Blood Pressure [Ri ght Arm] Pulse Oximetry 95 97 97 Oxygen Delivery Me thod 11/01/23 15:47 11/01/23 16:01 11/01/23 16:03 Temperature 98.4 F Pulse Rate 99 96 Pulse Rate [Pulse Oximeter] Respiratory Rate 16 Blood Pressure 95/52 L 114/63 Blood Pressure [Ri ght Arm] Pulse Oximetry 97 97 98 Oxygen Delivery Me thod 11/01/23 16:04 11/01/23 16:07 11/01/23 16:08 Temperature Pulse Rate 97 101 H 96 Pulse Rate [Pulse Oximeter] Respiratory Rate Blood Pressure 114/63 Blood Pressure [Ri ght Arm] Pulse Oximetry 97 96 97 Oxygen Delivery Me thod 11/01/23 16:11 11/01/23 16:30 11/01/23 16:34 Temperature 98.7 F Pulse Rate 91 89 89 Pulse Rate [Pulse Oximeter] Respiratory Rate 16 Blood Pressure 122/73 Blood Pressure [Ri ght Arm] Pulse Oximetry 95 93 Oxygen Delivery Me thod 11/01/23 16:56 11/01/23 16:57 11/01/23 17:00 Temperature 98.0 F Pulse Rate 90 91 95 Pulse Rate [Pulse Oximeter] Respiratory Rate 16 Blood Pressure 111/77 122/73 Blood Pressure [Ri ght Arm] Pulse Oximetry 97 98 94 Oxygen Delivery Me thod 11/01/23 18:19 11/01/23 18:19 11/01/23 19:20 Temperature 98.2 F 98.3 F Pulse Rate 77 Pulse Rate [Pulse Oximeter] 91 Respiratory Rate 18 16 16 Blood Pressure 97/61 Blood Pressure [Ri ght Arm] 121/72 Pulse Oximetry 98 94 95 Oxygen Delivery Me thod Room Air Room Air 05/06/24 21:59 11/01/23 23:00 11/02/23 09:00 Temperature Pulse Rate Pulse Rate [Pulse Oximeter] 91 Respiratory Rate 16 16 Blood Pressure Blood Pressure [Ri ght Arm] Pulse Oximetry 95 96 Oxygen Delivery Me thod Room Air Room Air 11/02/23 09:38 Temperature 98.7 F Pulse Rate Pulse Rate [Pulse Oximeter] 99 Respiratory Rate 16 Blood Pressure Blood Pressure [Ri ght Arm] 116/67 Pulse Oximetry 95 Oxygen Delivery Me thod Room Air Labs Labs: Laboratory Results - last 24 hr 11/01/23 11:46 Blood Type O Positive Antibody Screen NEGATIVE Crossmatch (AHG) See Detail
--- NOTE | 2023-11-02 14:37 | PC.SOCIAL ---
Discharge planning- Pt is currently a 1:1 with nursing. is working on pain management. Phone call to pt's and pt's does not want pt returning home and would like pt to go to SNF with hospice in place. Pt's would like pt placed as close to [place] as possible. Pt has [facility] and would like to know what SNF coverage is with pt's plan. Social work will look into insurance and provide information to . Will continue to follow up as needed.
--- NOTE | 2023-11-02 23:48 | PC.NURSE ---
End of shift [id number] - Pt alert intermittently during shift, unable to answer orientation questions. Observed to sleep. Up with standby assistance in room and walking in halls. Pt verbally responsive to commands, however is difficult to direct and requires frequent prompting. Family at bedside. Pt appears to be resting comfortably in bed at end of shift.
[2023-11-03] MEDS: LORazepam 2 MG/ML inj 1 MG IVP ×5 (00:32→20:57)
[2023-11-03] MEDS: HYDROmorphone 0.5 mg/0.5 ml inj 1 MG IVP ×7 (00:44→20:18)
[2023-11-03] MEDS: SODIUM CHLORIDE 0.9 % (FLUSH) 10 ML SYRINGE 5 ML IVF ×6 (03:24→20:18)
[2023-11-03] MEDS: HYOSCYAMINE SULFATE 0.125 MG TAB SUBLINGUAL ×2 (04:50→07:45)
[2023-11-03 07:30] VITALS: RESP 16
--- NOTE | 2023-11-03 07:59 | PC.NURSE ---
Pt is alert to self and pt has difficulties with following commands/direction but tries to be cooperative,?needs frequent prompting. Pt was?restless and anxious with facial grimacing unable to verbalize much more than yes or no and got up out of bed several times during night, managed with PRN?Dilaudid?and Advian. Pt slept intermittently throughout night.?
[2023-11-03] MEDS: SCOPOLAMINE 1 MG/3 DAY PATCH 1 PATCH TRANSDERMA (08:52)
[2023-11-03] MEDS: MORPHINE 10 MG/0.5 ML ORAL SOLN 5 MG PO ×2 (10:09→16:14)
--- NOTE | 2023-11-03 12:17 | PM.IMPN1 ---
Progress Note: A&P Assessment and plan (1) Cancer associated pain: Problem details: - 11/01/2023: admission medications include Fentanyl 50 mcg per 72-hour transdermal patch, oxycodone 10-15 mg Q4H prn, not achieving pain relief. - fentanyl patch increased to 75mcg on 10/31, IV Dilaudid available, liquid morphine added 11/02/23 Status: Acute (2) Adenocarcinoma of esophagus, stage 4: Problem details: - Diagnosed 08/13/2023. - Poorly differentiated adenocarcinoma in the distal esophagus, with extensive paraesophageal and abdominal adenopathy extending to well below the renal vasculature, 2 metastases to liver, possible bony metastases to pubic ramus. - patient declined palliative systemic therapy, opted instead to pursue ?alternate therapy. - esophageal stent placed 09/27/2023. - GJ tube placed 10/06/2023. - 11/01/2023: Patient requests comfort focus measures only with DNR DNI resuscitation status. He and declined any additional disease directed diagnostic or interventional efforts. Patient requests referral for hospice services if at all possible. Status: Acute (3) Malnutrition: Problem details: - status post esophageal stenting NG J-tube placement. - had been receiving enteral feeding via J-tube until he decided to discontinue this on 11/01/2023. - 11/01/2023: Patient decides to stop all enteral feeding support hereafter. Requests comfort focus measures only. Status: Acute (4) Agitation: Problem details: - likely progression of disease (possible brain mets) - prn Haldol and Benadryl if patient unsafe, continue redirection Status: Acute Plan - per above - await hospice placement - updated at bedside, questions answered Subjective Date Seen: 11/03/23 Interval history: Ed was admitted to the hospital on 10/31 for inadequate pain control and agitation in the setting of known metastatic esophageal cancer. Comfort cares initiated, and family is working with for hospice placement. Since admission, he has continued to have intermittent agitation (managed with prn Haldol, and Benadryl in addition to pain management). Nursing staff has noted increased oral secretions with difficulty in managing, Scopolamine patch initiated. He did not wake during my visit this morning. Exam Narrative: Exam Narrative: Patient is sitting in bedside chair, sleeping. He is not restless during my visit Pulse palptes as regular sinus tachycardia Const: Vital Signs, click to edit/add: Vital Signs - 24 hr 11/03/23 07:30 Respiratory Rate 16
--- NOTE | 2023-11-03 16:23 | PC.SOCIAL ---
Discharge planning- Phone call to pt's insurance at [phone]. Discussed coverage for SNF and hospice. Insurance informs that there is coverage for SNF and hospice. Insurance provided a list of SNF's in the 100 mile radius (4 listed SNF's), which is limited. Insurance also sent a list of Hospice agencies. Contacted the following SNF's for possible placement. [facility] ([place])- Phone call to Judith in admissions and left voicemail inquiring on openings. Faxed referral to [phone] for review. [facility]- Phone call to admissions at [phone]. Spoke to Zulma in admissions. There are no openings at this time. 3. [facility] ([place])- Phone call to admissions. Call did not go through. [facility] is now a closed facility per website. 4. [facility]- Phone call to admissions and lefft voicemail inquiring on openings. Contacted the following SNF facilities to see if they can review. 1. [facility]- Spoke to Lis Hsu in admissions. She will forward referral to Jeannine at [facility] for review. Jeannine will be back in the office tomorrow. Secure e-mailed referral. 2. [facility]- Phone call to Lana in admissions to discuss referral. Secure e-mailed referral to Lana for review. 3. [facility]- Secure e-mailed referral to Arielle in admissions for review. Social Work will continue to follow up on locating placement and hospice.
[2023-11-03] MEDS: HALOPERIDOL 5 MG/ML INJ IV (16:45)
[2023-11-03 17:25] VITALS: RESP 16
[2023-11-03] MEDS: HYOSCYAMINE SULFATE 0.125 MG TAB 0.25 MG SUBLINGUAL (17:57)
[2023-11-03] MEDS: diphenhydrAMINE 50 MG/ML inj IVP (17:57)
[2023-11-03] MEDS: MORPHINE 10 MG/0.5 ML ORAL SOLN PO ×2 (19:24→22:32)
--- NOTE | 2023-11-03 19:32 | PC.NURSE ---
end of shift. pt is not talking alot today and mumbles. he needs 2 assist today and does not walk well, he needs 2 assist and lots of instructions. pain meds given every 2 hours. he is getting IV meds. Dilaudid, Ativan Haldol Benadryl,. po Roxanol when he is restless we are given meds. it is about every 2 hours. SL is patent. 2 fentanyl patches are on and a scopolamine patch. he is incontinent of urine and has a brief on. he is have secretions and is getting suctioned in the room. turn and repo, he has been up to the chair and to bed every 2-3 hours. peg tube has not been used. was going to bring in syringe for it. he is alert x 0. po cares done. he is one to one prn.
[2023-11-03 23:00] VITALS: RESP 20
[2023-11-04] MEDS: diphenhydrAMINE 50 MG/ML inj IVP (00:03)
[2023-11-04] MEDS: HALOPERIDOL 5 MG/ML INJ IV ×2 (00:03→11:00)
[2023-11-04] MEDS: HYDROmorphone 0.5 mg/0.5 ml inj 1 MG IVP ×9 (00:03→19:45)
[2023-11-04] MEDS: LORazepam 2 MG/ML inj 1 MG IVP ×3 (02:56→14:01)
[2023-11-04] MEDS: SODIUM CHLORIDE 0.9 % (FLUSH) 10 ML SYRINGE 5 ML IVF ×6 (02:57→19:45)
--- NOTE | 2023-11-04 05:59 | PC.NURSE ---
End of shift report [id number]: Patient has remained non verbal and non responsive this shift. Periods of increased restlessness and agitation, well managed with current regimen. Patient has thick, copious secretions, utilized intermittent suctioning and frequent oral cares. Turned and repositioned for comfort. Incontinent of bladder. Dressing to PEG tube replaced, small amount of bloody drainage noted around insertion site. Appears to be comfortable at this time.
[2023-11-04 07:00] VITALS: RESP 12
--- NOTE | 2023-11-04 08:08 | PM.IMPN1 ---
Progress Note: A&P Assessment and plan (1) Comfort measures only status: Problem details: - see below - 11/03: given changes in the past 24 hours, appears to be approaching imminent status and does not appear to be stable for transport Status: Acute (2) Cancer associated pain: Problem details: - 11/01/2023: admission medications include Fentanyl 50 mcg per 72-hour transdermal patch, oxycodone 10-15 mg Q4H prn, not achieving pain relief. - fentanyl patch increased to 75mcg on 10/31, IV Dilaudid available, liquid morphine added 11/02/23 Status: Acute (3) Adenocarcinoma of esophagus, stage 4: Problem details: - Diagnosed 08/13/2023. - Poorly differentiated adenocarcinoma in the distal esophagus, with extensive paraesophageal and abdominal adenopathy extending to well below the renal vasculature, 2 metastases to liver, possible bony metastases to pubic ramus. - patient declined palliative systemic therapy, opted instead to pursue ?alternate therapy. - esophageal stent placed 09/27/2023. - GJ tube placed 10/06/2023. Status: Acute (4) Malnutrition: Problem details: - status post esophageal stenting NG J-tube placement. - had been receiving enteral feeding via J-tube until he decided to discontinue this on 11/01/2023. - 11/01/2023: Patient decides to stop all enteral feeding support at this time Status: Acute (5) Agitation: Problem details: - noted upon admission - likely progression of disease (possible brain mets) - prn Haldol and Benadryl if patient unsafe, continue redirection Status: Acute Plan - per above Subjective Date Seen: 11/04/23 Interval history: Ed was admitted to the hospital on 10/31 for inadequate pain control and agitation in the setting of known metastatic esophageal cancer. Comfort cares initiated at that time. Since admission, Ed has continued to decline. Overnight, he was noted to no longer have an active gag reflex and is rarely waking up at this time. He does occasionally exhibit signs of discomfort. Family has been at bedside during the day. Exam Narrative: Exam Narrative: Ed is sleeping in bed comfortably. He does not wake to voice or touch. Pulse palpates as sinus tachycardia. Const: Vital Signs, click to edit/add: Vital Signs - 24 hr 11/03/23 17:25 11/03/23 23:00 Respiratory Rate 16 20
--- NOTE | 2023-11-04 09:49 | PC.SOCIAL ---
Addendum entered by SHANDRA Kirk 11/04/23 11:57: Received an e-mail from Lana in admissions at the [facility]. They are willing to assess for admission, if needed. Provided update that at this time pt is not stable for transfer. Informed Lana that social work will reach out to her if there is any changes. Original Note: Per MD, pt is not appropriate for transfer due to declined status. MD will update pt's . Social work will follow up as needed.
[2023-11-04] MEDS: MORPHINE 10 MG/0.5 ML ORAL SOLN PO ×5 (12:20→22:36)
[2023-11-04 15:00] VITALS: PULSE 124; RESP 14
[2023-11-04 18:45] VITALS: PULSE 122; RESP 20
--- NOTE | 2023-11-04 18:59 | PC.NURSE ---
End of shift [id number]: Pt is been unresponsive and mostly non-verbal all shift. He becomes intermittently restless or rigid when his brief is wet or when his pain is increased. PRN morphine and PRN Dilaudid have been alternated throughout the day so he?s been receiving medications every hour. RR range from 12 after medications to 22 when pain is increasing. PIV in left AC SL, patent and C/D/I. Pt has had multiple family members visiting throughout the day. Secretions remain thick so Atropin gtt?s have been ordered and added on. Scopalamine patch is present behind right ear and Fentanyl patch is present on left upper back/shoulder blade. Pt has had x2 wet briefs throughout the shift today. No PO intake. ?
[2023-11-04] MEDS: fentaNYL 25 MCG/HR PATCH 1 PATCH TRANSDERMA (19:44)
[2023-11-04] MEDS: fentaNYL 50 MCG/HR PATCH 1 PATCH TRANSDERMA (19:55)
[2023-11-05] MEDS: SODIUM CHLORIDE 0.9 % (FLUSH) 10 ML SYRINGE 5 ML IVF ×3 (05:04→11:34)
[2023-11-05] MEDS: HYDROmorphone 0.5 mg/0.5 ml inj 1 MG IVP ×5 (05:04→21:46)
[2023-11-05] MEDS: MORPHINE 10 MG/0.5 ML ORAL SOLN PO ×4 (06:39→23:45)
[2023-11-05 07:00] VITALS: RESP 20
--- NOTE | 2023-11-05 08:04 | PC.NURSE ---
Pt turned and repositioned q2h. Meds given as needed. Pt had one very sm inc urine inc product. T 100.4 temporal
[2023-11-05] MEDS: LORazepam 2 MG/ML inj 1 MG IVP ×3 (09:08→23:22)
--- NOTE | 2023-11-05 10:49 | PM.IMPN1 ---
Progress Note: A&P Assessment and plan (1) Comfort measures only status: Problem details: - see below - 11/03: given changes in the past 24 hours, appears to be approaching imminent status and does not appear to be stable for transport Status: Acute (2) Cancer associated pain: Problem details: - 11/01/2023: admission medications include Fentanyl 50 mcg per 72-hour transdermal patch, oxycodone 10-15 mg Q4H prn, not achieving pain relief. - fentanyl patch increased to 75mcg on 10/31, IV Dilaudid available, liquid morphine added 11/02/23 Status: Acute (3) Adenocarcinoma of esophagus, stage 4: Problem details: - Diagnosed 08/13/2023. - Poorly differentiated adenocarcinoma in the distal esophagus, with extensive paraesophageal and abdominal adenopathy extending to well below the renal vasculature, 2 metastases to liver, possible bony metastases to pubic ramus. - patient declined palliative systemic therapy, opted instead to pursue ?alternate therapy. - esophageal stent placed 09/27/2023. - GJ tube placed 10/06/2023. Status: Acute (4) Malnutrition: Problem details: - status post esophageal stenting NG J-tube placement. - had been receiving enteral feeding via J-tube until he decided to discontinue this on 11/01/2023. - 11/01/2023: Patient decides to stop all enteral feeding support at this time Status: Acute (5) Agitation: Problem details: - noted upon admission - likely progression of disease (possible brain mets) - prn Haldol and Benadryl if patient unsafe, continue redirection Status: Acute Plan - continue comfort cares - in given increased level of responsiveness today, question of true imminent status - discussion held with and family members; if patient continues to be awake and alert, may need transfer to home or a facility for long-term hospice care Subjective Date Seen: 11/05/23 Interval history: Ed was admitted to the hospital on 10/31 for agitation and severe pain in the setting of known metastatic esophageal cancer. Upon admission, comfort cares initiated after discussion with patient and . Yesterday, he was minimally responsive and presumed as imminently dying. This morning he has been more interactive, occasionally answering questions. He was also noted to have a significant amount of coffee-ground discharge from his G tube. Family at bedside throughout the day. Exam Narrative: Exam Narrative: Laying comfortably in bed, intermittently responding to voice Pulse palpates as sinus tachycardia Abdomen is nondistended, there is coffee-ground drainage from G-tube noted Const: Vital Signs, click to edit/add: Vital Signs - 24 hr 11/04/23 15:00 11/04/23 18:45 Pulse Rate [Pulse Oximeter] 124 H 122 H Respiratory Rate 14 20
[2023-11-05] MEDS: HYOSCYAMINE SULFATE 0.125 MG TAB 0.25 MG SUBLINGUAL (11:33)
--- NOTE | 2023-11-05 13:42 | PC.SOCIAL ---
Discharge planning: Provider requested clinical social worker discuss home hospice option with as she had expressed some interest in this with physician. Met with who shared that initially she was interested in home hospice but she is concerned that his needs can't be met at home. At this time, continues to want pt to stay at the hospital. Provided with written information on hospice care and list of in-network hospice agencies which was provided by the insurance. states she will think this over and talk to clinical social worker on Wednesday. fuller brush worker to follow up as needed.
[2023-11-05 15:00] VITALS: RESP 22
[2023-11-06] MEDS: HYDROmorphone 0.5 mg/0.5 ml inj 1 MG IVP ×5 (01:45→15:59)
[2023-11-06] MEDS: MORPHINE 10 MG/0.5 ML ORAL SOLN PO ×6 (02:34→20:15)
--- NOTE | 2023-11-06 06:19 | PC.NURSE ---
End of shift [id number]: PT had a couple visitors in the evening last night. Would open eyes periodically. PRN morphine, Ativan, and Dilaudid given PRN. Turn and repo q2h. Multiple large incontinent voids throughout shift.
[2023-11-06 07:00] VITALS: PULSE 108; RESP 22
[2023-11-06] MEDS: LORazepam 2 MG/ML inj 1 MG IVP ×3 (08:27→20:52)
[2023-11-06] MEDS: SCOPOLAMINE 1 MG/3 DAY PATCH 1 PATCH TRANSDERMA (08:29)
[2023-11-06] MEDS: SODIUM CHLORIDE 0.9 % (FLUSH) 10 ML SYRINGE 5 ML IVF ×2 (08:32→21:10)
--- NOTE | 2023-11-06 10:39 | PM.IMPN1 ---
Progress Note: A&P Assessment and plan (1) Comfort measures only status: Problem details: - see below - 11/03: given changes in the past 24 hours, appears to be approaching imminent status and does not appear to be stable for transport - 11/05: continues to appear to be declining toward imminent status, comfort achieved. Status: Acute (2) Cancer associated pain: Problem details: - 11/01/2023: admission medications include Fentanyl 50 mcg per 72-hour transdermal patch, oxycodone 10-15 mg Q4H prn, not achieving pain relief. - fentanyl patch increased to 75mcg on 10/31, IV Dilaudid available, liquid morphine added 11/02/23; encourage use of morphine before dilaudid Status: Acute (3) Adenocarcinoma of esophagus, stage 4: Problem details: - Diagnosed 08/13/2023. - Poorly differentiated adenocarcinoma in the distal esophagus, with extensive paraesophageal and abdominal adenopathy extending to well below the renal vasculature, 2 metastases to liver, possible bony metastases to pubic ramus. - patient declined palliative systemic therapy, opted instead to pursue ?alternate therapy. - esophageal stent placed 09/27/2023. - GJ tube placed 10/06/2023. Status: Acute (4) Malnutrition: Problem details: - status post esophageal stenting NG J-tube placement. - had been receiving enteral feeding via J-tube until he decided to discontinue this on 11/01/2023. - 11/01/2023: Patient decides to stop all enteral feeding support at this time Status: Acute (5) Agitation: Problem details: - noted upon admission - likely progression of disease (possible brain mets) - prn Haldol and Benadryl if patient unsafe, continue redirection Status: Acute Plan - continue comfort cares - true imminent status is unclear, family aware of this and that we may need to discuss transfer to home or a facility for long-term hospice care Subjective Time Seen by Provider: 09:00 Date Seen: 11/06/23 Interval history: Ed's and parents were at the bedside. His daughter was on speaker on her mother's phone in the room. Ed has been comfortable overnight with the exception of depends and bedding changes. I spoke with them about this being the reason why I ordered a quinn catheter and they were in agreement that they just want him to be as comfortable as possible at this point. They spoke about how he was so much more awake yesterday, but seems to be more sleepy and comfortable today. His expressed feeling overwhelmed with the amount of visitors that she has received it and wishes it to be immediate family in the room only when she is there, but other visitors can come when she is not around. I gave the family an opportunity to express any questions or concerns that they had and we discussed end of life care. Exam Narrative: Exam Narrative: General: Laying on his back comfortably in the bed, sleeping. Stirs to voice, 1 word verbal response. Cardiovascular: Tachycardic, regular. Abdomen: Small amount of coffee-ground drainage on the gauze around the G-tube. Extremities: No pedal edema. Const: Vital Signs, click to edit/add: Vital Signs - 24 hr 11/05/23 15:00 Respiratory Rate 22
--- NOTE | 2023-11-06 19:32 | PC.NURSE ---
End of Shift: Patient on comfort cares. Turned and repositioned every 2 hours. Pain managed with PRN medication, see MAR. Lopez catheter placed this morning. Family has been at bedside throughout the day.
[2023-11-07] MEDS: MORPHINE 10 MG/0.5 ML ORAL SOLN PO ×6 (01:30→21:02)
[2023-11-07] MEDS: HYDROmorphone 0.5 mg/0.5 ml inj 1 MG IVP ×2 (04:10→07:59)
[2023-11-07 07:00] VITALS: PULSE 102; RESP 12
[2023-11-07] MEDS: SODIUM CHLORIDE 0.9 % (FLUSH) 10 ML SYRINGE 5 ML IVF ×2 (07:58→21:07)
--- NOTE | 2023-11-07 08:13 | PC.NURSE ---
Patient on comfort cares and remained in bed this shift. Opened his eyes periodically during cares. Given PRN Morphine and Dilaudid for signs of discomfort. Dressing to drain changed this shift.?
[2023-11-07] MEDS: LORazepam 2 MG/ML inj 1 MG IVP ×3 (08:45→21:07)
--- NOTE | 2023-11-07 09:34 | PM.IMPN1 ---
Progress Note: A&P Assessment and plan (1) Comfort measures only status: Problem details: - see below - 11/03: given changes in the past 24 hours, appears to be approaching imminent status and does not appear to be stable for transport - 11/05: continues to appear to be declining toward imminent status, comfort achieved. Lopez placed for comfort. - 11/06: no major change. Continue comfort cares. Lopez in place. Status: Acute (2) Cancer associated pain: Problem details: - 11/01/2023: admission medications include Fentanyl 50 mcg per 72-hour transdermal patch, oxycodone 10-15 mg Q4H prn, not achieving pain relief. - fentanyl patch increased to 75mcg on 10/31, IV Dilaudid available, liquid morphine added 11/02/23; encourage use of morphine before dilaudid Status: Acute (3) Adenocarcinoma of esophagus, stage 4: Problem details: - Diagnosed 08/13/2023. - Poorly differentiated adenocarcinoma in the distal esophagus, with extensive paraesophageal and abdominal adenopathy extending to well below the renal vasculature, 2 metastases to liver, possible bony metastases to pubic ramus. - patient declined palliative systemic therapy, opted instead to pursue ?alternate therapy. - esophageal stent placed 09/27/2023. - GJ tube placed 10/06/2023. Status: Acute (4) Malnutrition: Problem details: - status post esophageal stenting NG J-tube placement. - had been receiving enteral feeding via J-tube until he decided to discontinue this on 11/01/2023. - 11/01/2023: Patient decides to stop all enteral feeding support at this time Status: Acute (5) Agitation: Problem details: - noted upon admission - likely progression of disease (possible brain mets) - prn Haldol and Benadryl if patient unsafe, continue redirection Status: Acute Plan - continue comfort cares - true imminent status is unclear, family aware of this and that we may need to discuss transfer to home or a facility for long-term hospice care; if not imminent Wednesday (tomorrow), will need to look at options for discharge on hospice. Subjective Time Seen by Provider: 08:10 Date Seen: 11/07/23 Interval history: Comfortable overnight with some hiccups and a bit of restlessness this morning. Exam Narrative: Exam Narrative: General: Laying on his back comfortably in the bed, sleeping. Stirs to voice, minimally responsive, no verbal response, no eye opening. Cardiovascular: Tachycardic, regular. Const: Vital Signs, click to edit/add: Vital Signs - 24 hr 11/05/23 15:00 Respiratory Rate 22
[2023-11-07 15:00] VITALS: PULSE 108; RESP 16
--- NOTE | 2023-11-07 19:21 | PC.NURSE ---
End of Shift: Patient on comfort cares. Turned and repositioned every 2 hours. Pain managed with PRN medication, see MAR. Family has been at bedside throughout the day.
[2023-11-07] MEDS: fentaNYL 25 MCG/HR PATCH 1 PATCH TRANSDERMA (21:10)
[2023-11-07] MEDS: fentaNYL 50 MCG/HR PATCH 1 PATCH TRANSDERMA (21:10)
[2023-11-08] MEDS: MORPHINE 10 MG/0.5 ML ORAL SOLN PO ×6 (01:30→23:30)
[2023-11-08] MEDS: SODIUM CHLORIDE 0.9 % (FLUSH) 10 ML SYRINGE 5 ML IVF ×3 (03:22→08:29)
[2023-11-08] MEDS: LORazepam 2 MG/ML inj 1 MG IVP ×3 (03:22→16:22)
[2023-11-08] MEDS: HYDROmorphone 0.5 mg/0.5 ml inj 1 MG IVP ×5 (05:29→16:22)
--- NOTE | 2023-11-08 06:14 | PC.NURSE ---
[id number]: Patient on comfort cares. T&R for comfort. PRN medication administered throughout shift for comfort. G-tube dressing changed. Oral cares completed. Lopez intact.
--- NOTE | 2023-11-08 13:53 | P.IMPN_ITS ---
Progress Note: A&P Assessment and plan (1) Comfort measures only status: Problem details: - see below - 11/03: given changes in the past 24 hours, appears to be approaching imminent status and does not appear to be stable for transport - 11/05: continues to appear to be declining toward imminent status, comfort achieved. Lopez placed for comfort. - 11/06: no major change. Continue comfort cares. Lopez in place. - 11/07: more apneic and some Miah-Rapp breathing. Possibly imminent. Status: Acute (2) Cancer associated pain: Problem details: - 11/01/2023: admission medications include Fentanyl 50 mcg per 72-hour transdermal patch, oxycodone 10-15 mg Q4H prn, not achieving pain relief. - fentanyl patch increased to 75mcg on 10/31, IV Dilaudid available, liquid morphine added 11/02/23; encourage use of morphine before dilaudid Status: Acute (3) Adenocarcinoma of esophagus, stage 4: Problem details: - Diagnosed 08/13/2023. - Poorly differentiated adenocarcinoma in the distal esophagus, with extensive paraesophageal and abdominal adenopathy extending to well below the renal vasculature, 2 metastases to liver, possible bony metastases to pubic ramus. - patient declined palliative systemic therapy, opted instead to pursue ?alternate therapy. - esophageal stent placed 09/27/2023. - GJ tube placed 10/06/2023. Status: Acute (4) Malnutrition: Problem details: - status post esophageal stenting NG J-tube placement. - had been receiving enteral feeding via J-tube until he decided to discontinue this on 11/01/2023. - 11/01/2023: Patient decides to stop all enteral feeding support at this time Status: Acute (5) Agitation: Problem details: - noted upon admission - likely progression of disease (possible brain mets) - prn Haldol and Benadryl if patient unsafe, continue redirection Status: Resolved Plan - continue comfort cares - true imminent status remains unclear, but now closer to it. Family aware of this and that we may need to discuss transfer to home or a facility for long- term hospice care. Will start searching for SNF with hospice so that if patient is not obviously imminent by tomorrow, will transfer there. Subjective Time Seen by Provider: 08:14 Date Seen: 11/08/23 Interval history: Having apneic breathing spells today. He had some yesterday, was better overnight, and then started again this morning. He is essentially unresponsive now as well. His and sister came this afternoon. Social work and I spoke with them. I let them know that he is making some changes, and I think his life expectancy is at most days at this point. I am concerned that with the apnea he is now having, could be within the next 24-48 hours, but even that is not clear. They demonstrated understanding. We came to an agreement to keep him here tonight while we search for a SNF [place] with hospice. If he is not obviously imminent tomorrow and we have a hospice SNF for him, then we will discharge him there tomorrow. Exam Narrative: Exam Narrative: General: Laying on his back comfortably in the bed, sleeping. Unresponsive, no eye opening. Cardiovascular: Tachycardic, regular. Abdomen: small amount of black drainage on gauze around G-tube. Const: Vital Signs, click to edit/add: Vital Signs - 24 hr 11/07/23 15:00 Pulse Rate [Pulse Oximeter] 108 H Respiratory Rate 16
--- NOTE | 2023-11-08 14:24 | PC.SOCIAL ---
Discharge planning: high worker met with pt's , Diana, pt's sister and the provider on duty to discuss pt's current status and plan going forward. Pt has not yet reached immanent status and the provider is suggesting that he may now need to transfer to a facility with hospice services in place. The provider on duty explained to pt's and sister that she was going to keep him in the hospital again tonight and then reassess his status tomorrow. If he has not reached immanent status tomorrow, a plan for transferring to a facility with hospice in place will be the next step. Pt's stated that she would prefer to have [facility] in place, as they do contract with pt's insurance. Pt's also stated that she would like the pt to be able to go to [facility] in [place], if possible, as her number one choice. [facility] does not have openings right now. [facility] in [place] is closed. [facility] has not returned our phone calls. These are the four facilities that are contracted with the pt's insurance. [facility] in [place] maybe able to take the pt, as well, but they are questioning the pt's transfer stability. Social work to follow-up as needed.
[2023-11-08] MEDS: fentaNYL 25 MCG/HR PATCH 1 PATCH TRANSDERMA (17:55)
--- NOTE | 2023-11-08 18:56 | PC.NURSE ---
: The patient is unresponsive throughout the day... periods of 8-15 seconds of apnea were noted intermittently throughout the day... Repositioning based on comfort. PRN diluadid and morphine were used throughout the shift. Facial grimacing was noted with repositioning. G tube has black output surrounding the sight. Oral cares, rolando care and a bed bath were given this shift. The patients IV fell out during a reposition, per DR Sommer ok to D/C IV we will use liquid morphine. He d/cd the Ativan order as well... seems not warranted currently with the patients symptoms. Lopez remains in place, patent and draining. , sister, and aunt visited this shift. Marisa would like to be called with any updates... She called the floor around 1829 and an update was given that his condition has remained the same. Call light within reach.
[2023-11-09] MEDS: MORPHINE 10 MG/0.5 ML ORAL SOLN PO ×3 (02:48→08:06)
--- NOTE | 2023-11-09 06:39 | PC.NURSE ---
Addendum entered by Alexus Nash RN 11/09/23 07:06: Correction: 125 mL urinary output via catheter this shift. Original Note: End of shift note: Pt remains unresponsive and on comfort cares with staff performing repositioning and oral cares. PRN Morphine given throughout the shift to promote comfort as well as PRN Atropine drops given. Lopez catheter remains in place though pt having minimal output- 75 mL of dark willis urine throughout the shift. Pt noted to have copious amount of dark brown/black drainage to G tube site with site cares completed at and then another episode of moderate amount of dark brown/black drainage with site cares completed a second time this morning. Pt currently receiving Fentanyl 100 mcg/hr for pain control.
--- NOTE | 2023-11-09 11:15 | PC.SOCIAL ---
Discharge planning: plant nursery worker contacted pt's , Diana, this morning and explained that the provider on duty would like this worker to look for a facility for pt to go to due to not seeing enough change in his status overnight. The pt's insurance has a very limited amount of facilities that it will contract with. plant nursery worker has emailed and left multiple messages for the [facility] in [place], which is the families first choice, but has not gotten a response. plant nursery worker explained this to pt's and it was decided that pt's would try reaching out to [facility] in [place], as well. plant nursery worker left another message with Cel[facility] to see if they foresee any openings in the near future. [facility] in [place] is permanently closed. plant nursery worker did speak to [facility] in [place], [place], and they stated that they do not have openings right now and they do not take pt's that would be in need of hospice. [facility] in [place] may be able to take the pt, depending on insurance/MA status, but pt's is really wanting pt to go to [facility] in [place] and is going to try to get a hold of them herself and then reach back out to this worker. Social work to follow-up as needed.
--- NOTE | 2023-11-09 11:58 | P.DS_ITS ---
Discharge Sum: Prov Provider Time Seen by Provider: 11:50 Date Seen: 11/09/23 Primary care physician: Abdifatah Khoury MD Consults: 11/01/23 18:19 Consult to Hydraulic Pile Hammer Operator [CONS] Routine Comment: Reason for Consult:: Discharge Planning Needs Pronouncing clinician: Rhea Vasquez Discharge Sum: Diag PCOD Cause of : Adenocarcinoma of esophagus, stage 4 Contributing Factors (1) Adenocarcinoma of esophagus, stage 4: (2) Malnutrition: (3) Agitation: (4) Cancer associated pain: (5) Comfort measures only status: Discharge Sum: Summary Date and Time Date of admission: 11/03/23 14:29 Date of : 11/09/23 Time of : 11:45 Additional Data Confirmation of as documented by pronouncing clinician: no pulse, no respirations, no heart sounds and pupils fixed and dilated Family: contacted (I called the patient's , Marisa at 11:52 a.m. and notified her.) Attending physician: Rhea Vasquez MD Was code activated?: No Autopsy requested?: No
--- NOTE | 2023-11-09 15:52 | PC.NURSE ---
called Mary time was called 1500 they will call back when they have a time to pick him up
--- NOTE | 2023-11-09 16:50 | PC.NURSE ---
Discharge - Pt at approximately 1145, expiration confirmed by Dr. Vasquez. Lopez catheter removed with tip intact. Fentanyl patches x 3 and scopolamine removed, wasted in [employer] and disposed in black box in med room. Waste witnessed by PORFIRIO Meneses. [facility], pt picked up by [facility] staff at approximately 1640.
== END 2023-11-09 16:40 | disposition expired | DRG 375 ==
LOC: ED 11:01 → MEDSURG 17:06
PROVIDERS: Admitting Provider Internal Medicine; Emergency Provider Family Medicine; PCP Family Medicine; Visit Provider Family Medicine
DX: C15.5 Malignant neoplasm of lower third of esophagus (principal); C77.2 Secondary and unspecified malignant neoplasm of intra-abdominal lymph nodes; C78.7 Secondary malignant neoplasm of liver and intrahepatic bile duct; E46 Unspecified protein-calorie malnutrition; D62 Acute posthemorrhagic anemia; C78.6 Secondary malignant neoplasm of retroperitoneum and peritoneum; C79.51 Secondary malignant neoplasm of bone; C79.72 Secondary malignant neoplasm of left adrenal gland; R53.1 Weakness; R10.9 Unspecified abdominal pain; G89.3 Neoplasm related pain (acute) (chronic); R45.1 Restlessness and agitation; Z51.5 Encounter for palliative care; Z93.1 Gastrostomy status; Z87.891 Personal history of nicotine dependence; Z68.26 Body mass index [BMI] 26.0-26.9, adult
CPT/HCPCS: 36415; 36430; 51701; 74177; 80053; 81001; 83605; 83690; 85025; 86140; 86850; 86900; 86901; 86922; 87086; 99284; 99285; A9270; C9113; G0378; J1170; J1200; J1630; J2060; J2405; J7030; J7050; P9016; Q9967